=== PATIENT | female | born 1985 | race Two or more races ===

== ENCOUNTER 2021-04-28 17:01 | Emergency (ER) | payer BC ==
[~2021-04-28] VITALS: Ht 157.5 cm; Wt 55.0 kg
[2021-04-28 19:27] VITALS: BP 103/55
--- NOTE | 2021-04-28 20:15 | RAD ---
Exam: Chest one view INDICATION: Short of air TECHNIQUE: Frontal view of the chest Comparisons: None FINDINGS: The cardiomediastinal silhouette and pulmonary vessels are within normal limits. The lung and pleural spaces are clear. IMPRESSION: No acute cardiopulmonary process. Electronically signed by: Cheyanne Sampson MD (04/28/2021 8:12 PM) [facility]
--- NOTE | 2021-04-28 20:45 | PHYS DOC ---
Past Medical History Past Surgical History: Appendectomy (VIKY GUILLEN COMBINE MECHANIC) Smoking Status: Never Smoker Alcohol Use: None (VIKY GUILLEN COMBINE MECHANIC) General Adult EDM: Chief Complaint: SHORTNESS OF BREATH HPI: HPI: Patient is a 35 year old female with no significant medical history who presents to the ED today complaining of shortness of breath that she noted today. Patient denies any symptoms right now in the ED. She states she was seen earlier at urgent care and was sent to the ED to be evaluated. Denies any chest pain. Denies any fever. She states she has not received a Covid vaccine. Patient is Chin speaking but speaks and understands some Stateless very well (VIKY GUILLEN COMBINE MECHANIC) Review of Systems: Review of Systems: Constitutional: Denies fever or chills. [] Eyes: Denies change in visual acuity. [] HENT: Denies nasal congestion or sore throat. [] Respiratory: Reports shortness of breath, denies coughing Cardiovascular: Denies chest pain or edema. [] GI: Denies abdominal pain, nausea, vomiting, bloody stools or diarrhea. [] : Denies dysuria. [] Musculoskeletal: Denies back pain or joint pain. [] Integument: Denies rash. [] Neurologic: Denies headache, focal weakness or sensory changes. [] Psychiatric: Denies depression or anxiety. [] (VIKY GUILLEN COMBINE MECHANIC) Heart Score: C/O Chest Pain: N/A Risk Factors: Risk Factors: DM, Current or recent (<one month) smoker, HTN, HLP, family history of CAD, obesity. Risk Scores: Score 0 - 3: 2.5% MACE over next 6 weeks - Discharge Home Score 4 - 6: 20.3% MACE over next 6 weeks - Admit for Clinical Observation Score 7 - 10: 72.7% MACE over next 6 weeks - Early Invasive Strategies (VIKY GUILLEN COMBINE MECHANIC) Allergies: Allergies: Allergies Coded Allergies Type Severity Reaction Last Updated Verified No Known Drug Allergies 04/28/21 No (VIKY GUILLEN COMBINE MECHANIC) Physical Exam: PE: Constitutional: Well developed, well nourished, no acute distress, non-toxic appearance. [] HENT: Normocephalic, atraumatic, bilateral external ears normal, oropharynx moist, no oral exudates, nose normal. [] Eyes: PERRLA, EOMI, conjunctiva normal, no discharge. [] Neck: Normal range of motion, no tenderness, supple, no stridor. [] Cardiovascular:Heart rate regular rhythm, no murmur [] Lungs & Thorax: Bilateral breath sounds clear to auscultation [] Abdomen: Bowel sounds normal, soft, no tenderness, no masses, no pulsatile masses. [] Skin: Warm, dry, no erythema, no rash. [] Back: No tenderness, no CVA tenderness. [] Extremities: No tenderness, no cyanosis, no clubbing, ROM intact, no edema. [] Neurologic: Alert and oriented X 3, normal motor function, normal sensory function, no focal deficits noted. [] Psychologic: Affect normal, judgement normal, mood normal. [] (VIKY GUILLEN COMBINE MECHANIC) Current Patient Data: Vital Signs: Vital Signs Date Time Temp Pulse Resp B/P (MAP) Pulse Ox O2 Delivery O2 Flow Rate FiO2 04/28/21 19:27 90 18 103/55 (71) 100 04/28/21 19:19 98.6 Room Air 98.6 (VIKY GUILLEN COMBINE MECHANIC) EKG: EK interpreted by Dr. Polk sinus rhythm heart rate 73 no STEMI [] (VIKY GUILLEN COMBINE MECHANIC) Radiology/Procedures: Radiology/Procedures: []PROCEDURE: CHEST AP ONLY Exam: Chest one view INDICATION: Short of air TECHNIQUE: Frontal view of the chest Comparisons: None FINDINGS: The cardiomediastinal silhouette and pulmonary vessels are within normal limits. The lung and pleural spaces are clear. IMPRESSION: No acute cardiopulmonary process. Electronically signed by: Cheyanne Newman MD (04/28/2021 8:12 PM) [facility] [place] DICTATED and SIGNED BY: CHEYANNE NEWMAN MD DATE: 04/28/[id number] 0 (VIKY GUILLEN COMBINE MECHANIC) Course & Med Decision Making: Course & Med Decision Making Pertinent Labs and Imaging studies reviewed. (See chart for details) This is a 35-year-old female patient presenting to the ED today from urgent care with evaluated for shortness of breath that she noted today. Patient arrived in the ED by EMS. She states she does not have any shortness of breath right now. She states she feels better. She is afebrile. O2 sats 99 to 100% on room air. Chest x-ray interpreted by radiologist as negative for any acute findings, EKG is negative. Covid test was ordered. Work-up was ordered. Patient refused the rest of the work-up. She states she feels so much better and does not feel there is need for further work-up. (VIKY GUILLEN APRN) Course & Med Decision Making I have participated in the care of this patient and I have reviewed and agree with all pertinent clinical information above including history, exam, and recommendations. Micaela Polk DO (MICAELA POLK DO) Dragon Disclaimer: Cristina Disclaimer: This electronic medical record was generated, in whole or in part, using a voice recognition dictation system. (VIKY GUILLEN APRN) Departure Departure Impression: Primary Impression: Shortness of breath Disposition: 01 HOME / SELF CARE / HOMELESS Condition: STABLE Referrals: NO PCP (PCP) VIKY GUILLEN APRN Apr 28, 2021 20:45 MICAELA POLK DO Apr 28, 2021 23:55
--- NOTE | 2021-04-29 05:41 | EKG ---
[facility] [address] [place] [id number] Test Date: 2021-04-28 Test Time: 19:20:08 Pat Name: HOSSEIN YOUNGBLOOD Department: Room: Gender: F Rough Rounder: : 1985 Requested By: VIKY GUILLEN Order Number: [id number] Reading MD: Measurements Intervals [place] Rate: 73 P: 0 OK: 134 QRS: 9 QRSD: 90 T: 24 QT: 356 QTc: 396 Interpretive Statements SINUS RHYTHM NORMAL ECG RI6.02 No previous ECG available for comparison
== END 2021-04-28 20:43 | disposition home or self-care (01) ==
LOC: ER 17:01
DX: R06.02 Shortness of breath (principal)
CPT/HCPCS: 71045; 93005; 99283